=== PATIENT | male | born 1960 | race Caucasian/White ===

== ENCOUNTER 2019-03-10 10:07 | Day surgery (SDC) | payer OTHER ==
[~2019-03-10] VITALS: Ht 172.7 cm; Wt 72.0 kg
[~2019-03-10 10:07] MED LIST: ALLEGRA ALLERG180 MG PO; ATOR40TA PO; Aspir 8181 MG PO; BUPR75 PO; CARV6.25 PO; DEXT40GEL PO; ENTRESTO 24 MG1 EACH PO; ESZO2 PO; FURO40 PO; HYDACE5 PO; MICROZIDE12.5 M1 PO; ONDA4 PO; POTA10T PO; Percocet 5-3251 EACH PO; TRAZ50 PO; XARELTO20 MG PO
[2019-03-10] MEDS ORDERED: ALDACTONE25 MG (11:12)
--- NOTE | 2019-03-10 15:50 | NUR ---
PT DRESSED, AMB TO BTR X 2, TR BAND REMOVED, DRESSING TO R RADIAL SITE, SPLINT PLACED ON R WRIST, ARM SLING PLACED ON R ARM. IV DC'D INTACT, PT CHOOSES TO AMB OUT WITH FRIEND AND IS DRIVING PT HOME. SEE THE [facility] STRIP RECORD FOR RECOVERY VITAL SIGNS
[2019-04-02] MEDS ORDERED: CLEM1.34 PO (13:38)
== END 2019-03-10 16:18 | disposition home or self-care (01) ==
LOC: MHTC 10:07
PROC: 4A023N8 Measurement of Cardiac Sampling and Pressure, Bilateral, Percutaneous Approach (ICD-10-PCS; principal; 2019-03-10)
PROC: B206YZZ Plain Radiography of Right and Left Heart using Other Contrast (ICD-10-PCS; principal; 2019-03-10)
PROC: B201YZZ Plain Radiography of Multiple Coronary Arteries using Other Contrast (ICD-10-PCS; principal; 2019-03-10)
DX: I42.8 Other cardiomyopathies (principal); I25.10 Atherosclerotic heart disease of native coronary artery without angina pectoris; I27.20 Pulmonary hypertension, unspecified; E78.5 Hyperlipidemia, unspecified; I10 Essential (primary) hypertension; G47.33 Obstructive sleep apnea (adult) (pediatric); F17.200 Nicotine dependence, unspecified, uncomplicated; I73.9 Peripheral vascular disease, unspecified; F43.10 Post-traumatic stress disorder, unspecified; F19.10 Other psychoactive substance abuse, uncomplicated; Z79.82 Long term (current) use of aspirin; Z79.899 Other long term (current) drug therapy; Z79.01 Long term (current) use of anticoagulants
CPT/HCPCS: 93456; 99152; C1769; C1894; J1644; J2250; J3010; J7030; Q9967

== ENCOUNTER 2019-05-25 14:09 | Observation (INO) | payer OTHER ==
[~2019-05-25] VITALS: Ht 172.7 cm; Wt 72.7 kg
[~2019-05-25 14:09] MED LIST changes: +ALDACTONE25 MG; +CLEM1.34 PO
[2019-05-25 15:34] LABS: BASOPHILS ABSOLUTE AUTO 0.11 K/mm3 (0.00-0.23); BASOPHILS PERCENT AUTO 1 % (0-2); EOSINOPHILS PERCENT AUTO 3 % (0-6); Hematocrit 36.1 % (37.0-53.0); Hemoglobin 12.4 g/dL (13.5-17.5); IMMATURE GRAN ABSOLUTE AUTO 0.12 K/mm3 (0.00-0.10); IMMATURE GRAN PERCENT AUTO 1 % (0-1); LYMPHOCYTES ABSOLUTE AUTO 2.84 K/mm3 (0.84-5.20); LYMPHOCYTES PERCENT AUTO 27 % (21-46); MONOCYTES ABSOLUTE AUTO 0.62 K/mm3 (0.16-1.47); MONOCYTES PERCENT AUTO 6 % (4-13); Mean Corpuscular HGB 29.4 pg (26.0-34.0); Mean Corpuscular HGB Conc 34.3 g/dL (31.5-36.5); Mean Corpuscular Volume 86 fL (80-100); Mean Platelet Volume 9.9 fL (9.1-12.4); NEUTROPHILS ABSOLUTE AUTO 6.61 K/mm3 (1.96-9.15); NEUTROPHILS PERCENT AUTO 63 % (41-73); Platelet Count 301 K/mm3 (150-400); RDW Coefficient Variation 12.4 % (11.7-14.2); RDW Standard Deviation 38.6 fL (35.1-46.3); Red Blood Cell Count 4.22 M/mm3 (4.30-5.90)
[2019-05-25 15:54] LABS: Alanine Aminotransfer (ALT/SGP 28 U/L (12-78); Albumin, Blood 3.4 g/dL (3.4-5.0); Albumin/Globulin Ratio 0.9 (0.8-1.8); Alk Phos 59 U/L (50-136); Anion Gap 3 mmol/L (6-16); Aspartate Aminotrans (AST/SGOT 18 U/L (12-37); Bilirubin, Total 0.1 mg/dL (0.1-1.0); Blood Urea Nitrogen 22 mg/dL (8-24); Bun/Creatinine Ratio 21.6 (12.0-20.0); CO2, Blood 30 mmol/L (21-32); Calcium, Blood 8.7 mg/dL (8.5-10.1); Chloride, Blood 102 mmol/L (98-108); Creatinine, Blood 1.02 mg/dL (0.60-1.20); Globulin, Blood 3.6 g/dL (2.2-4.0); Glomerular Filtration Rate >60 (60-); Glucose, Blood 81 mg/dL (70-99); Potassium, Blood 3.6 mmol/L (3.5-5.5); Sodium, Blood 135 mmol/L (136-145)
[2019-05-25 15:59] LABS: International Normalized Ratio 0.98; Prothrombin Time Results 10.5 Sec (9.7-11.5)
--- NOTE | 2019-05-25 19:28 | NUR ---
Patient gave permission for student to particpate in care. patient is A&Ox3 pleasant states being "woren out" but is in good spirits.
--- NOTE | 2019-05-26 07:49 | NUR ---
POD 1 S/P PACER REVISION W/HEMATOMA EVACUATION. PT VSS, HR SINUS DOROTHY PER TELE MONITOR. PRESSURE DRESSING REINFORCED. SITE DID HAVE SMALL AMT BLEEDING DRAINING DOWN NEAR ARMPIT AREA. PT DECLINED SLING WHEN FIRST ARRIVED TO FLOOR, PT AGREEABLE AFTER EDUCATED ON IMPORTANCE. SLING INPLACE, PT MAINTAINING ACTIVITY RESTRICTIONS. PAIN MGD PER EMAR W/REP RELIEF. PT LEIDY REG PO, NO N/V. BEDSIDE REPORT GIVEN TO DAY RN.
--- NOTE | 2019-05-26 08:12 | NUR ---
ROUNDED NEW ORDERS FOR IV ABX RECEIVED. TO ROUND THIS EVENING FOR DRSG CHANGE AND POSS DC.
[2019-05-26] MEDS ORDERED: LINE600 PO (16:58)
--- NOTE | 2019-05-26 17:08 | NUR ---
DISCHARGE PT EXCITED FOR DC AFTER DR ZURITA ROUNDED. DRSG CHANGED BY DR. MONZON FOR ABX GIVEN. PT STATES UNDERSTANDING AND DECLINES WC OUT.
== END 2019-05-26 18:20 | disposition home or self-care (01) ==
LOC: MHTC 14:09 → SURS 16:38 → MHTC 19:09 → SURS 19:09
PROVIDERS: ADMIT Internal Medicine Cardiovascular Disease
PROC: 0JWT3PZ Revision of Cardiac Rhythm Related Device in Trunk Subcutaneous Tissue and Fascia, Percutaneous Approach (ICD-10-PCS; principal; 2019-05-25)
DX: T82.897A Other specified complication of cardiac prosthetic devices, implants and grafts, initial encounter (principal); I42.8 Other cardiomyopathies; I10 Essential (primary) hypertension
CPT/HCPCS: 33215; 35820; 80053; 85025; 85610; 99152; 99153; A9270; A9270-GY; C1781; J1644; J2250; J3010; J3370; J7040; J7050

== ENCOUNTER 2024-02-13 05:38 | Day surgery (SDC) | payer OTHER ==
[2024-02-13] VITALS (10 sets, daily range): BP systolic 106–141; BP diastolic 73–100
[~2024-02-13] VITALS: Ht 172.7 cm; Wt 82.0 kg
[~2024-02-13 05:38] MED LIST changes: +ATOR20 PO; +Aspirin EC81 MG PO; +CARV6.25; +ESZO1 PO; +HYDCHL12.5 PO; +Klor-Con 1010 MEQ PO; +LINE600 PO; +Loratadine10 MG PO; +OXYC5; +SILD50TA PO; +SPIR25 PO; +TAMS.4ER PO; +TRAZ50
[2024-02-13] MEDS ORDERED: Nitroglycerin 2 MG/20 ML BTL ONE (06:30)
[2024-02-13] MEDS ORDERED: Verapamil HCL 2.5 MG/ML 2ML Injection ONE (06:30)
[2024-02-13] MEDS ORDERED: Heparin Sodium 1000 Units/ML 10ML MDV ONE (06:30)
[2024-02-13] MEDS ORDERED: NS 250 ML IV ONE (06:30)
[2024-02-13] MEDS ORDERED: NS 1,000 ML IV ONE ×2 (06:30→06:52)
[2024-02-13] MEDS ORDERED: PERIDEX15 ML MM (06:47)
[2024-02-13] MEDS ORDERED: FARXIGA10 MG PO (06:48)
[2024-02-13] MEDS ORDERED: Vitamin D1000 UNI1 PO (06:48)
[2024-02-13] MEDS ORDERED: DESV50 PO (06:49)
[2024-02-13] MEDS ORDERED: ESZO1 PO (06:50)
[2024-02-13] MEDS ORDERED: JARDIANCE10 MG PO (06:54)
[2024-02-13] MEDS ORDERED: METO25ER PO (06:55)
[2024-02-13] MEDS ORDERED: Midazolam HCl 1MG / ML 2ML Vial ONE (07:12)
[2024-02-13] MEDS ORDERED: FentaNYL Citrate 50 MCG/ML 2 ML Injection ONE (07:12)
--- NOTE | 2024-02-13 08:20 | NUR ---
[facility], A&O. right radial site soft , nontender, no bleeding, no hematoma, TR band secure. right venous ac site dressing D&I, no bleeding. hematoma under site stable per reprt, will monitor
--- NOTE | 2024-02-13 08:48 | NUR ---
Dr Marquis here to discuss finding from procedure with patient
[2024-02-13] MEDS ORDERED: ENTRESTO 24 MG1 EAC3 PO (08:59)
[2024-02-13] MEDS ORDERED: METO50ER PO (09:01)
--- NOTE | 2024-02-13 10:20 | NUR ---
air removal from TR band begun site stable
--- NOTE | 2024-02-13 11:29 | NUR ---
patient verbalized undersatnding of discharge instructions and precautions, no further questions. right radial site soft and nontender, no hematoma, no swelling. TR band removed, wrist board in place. IV site dced with catheter intact. patient taken to waiting car. friend driving
== END 2024-02-13 14:30 | disposition home or self-care (01) ==
LOC: MHTC 05:38
DX: I35.0 Nonrheumatic aortic (valve) stenosis (principal); E78.5 Hyperlipidemia, unspecified; I73.9 Peripheral vascular disease, unspecified; I25.10 Atherosclerotic heart disease of native coronary artery without angina pectoris; I27.20 Pulmonary hypertension, unspecified; I11.0 Hypertensive heart disease with heart failure; I50.20 Unspecified systolic (congestive) heart failure; G47.33 Obstructive sleep apnea (adult) (pediatric); F43.10 Post-traumatic stress disorder, unspecified; F17.210 Nicotine dependence, cigarettes, uncomplicated; Z79.82 Long term (current) use of aspirin; Z79.899 Other long term (current) drug therapy
CPT/HCPCS: 76937; 93456; 99152; C1769; C1887; C1894; J1644; J2250; J3010; J7030; J7050; Q9967